=== PATIENT | female | born 1965 | race Caucasian/White ===

== ENCOUNTER 2017-02-12 12:09 | Observation (INO) | payer SELFPAY ==
[2017-02-12] VITALS (7 sets, daily range): BP systolic 143–186; BP diastolic 74–87; PULSE 61–86; RESP 15–20; TEMP 97.8–98.5; O2SAT 96–100
[~2017-02-12] VITALS: Ht 160 cm; Wt 90.0 kg
[~2017-02-12 12:09] MED LIST: BACT800T5 PO; LEVS0.123 PO; LISI-519 PO; METF1000 PO; PANT20 PO; VITA1000 PO; ZOFR4TAB PO
[2017-02-12] MEDS ORDERED: SODIUM CHLOR 0.9% 1000 ML INJ 1,000 ML IV ONE (12:30)
[2017-02-12] MEDS ORDERED: KETOROLAC TROMETHAMINE 30 MG/ML (IVP) VIAL IV PUSH ONE (12:30)
[2017-02-12] MEDS ORDERED: SODIUM CHLORIDE 0.9% FLUSH 10 ML FLUSH IVF PRN (12:30)
--- NOTE | 2017-02-12 12:39 | PD ---
HPI Chief Complaint: Chest Pain Time Seen by Provider: 12:13 Travel History International Travel<30 days: No Contact w/Intl Traveler<30days: No Traveled to known affect area: No History of Present Illness HPI Patient is a 51 year old female with history of diabetes, presents to ER with complaints of chest pain. Patient reports that around 10:30am today, she began to have chest pain. Reports that she was having lunch when she began having left sided sharp stabbing chest pain. Patient reports that pain does not radiate , she did feel diaphoretic and sob with her symptoms. Reports that when EMS arrived on scene, she was given 5 SL nitro sprays which seemed to help with her symptoms. Reports that she has no hx of CAD or [place] in the past. Reports that pain has improved after SL Nitro but the medicine did give her a pounding headache. 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, "VAGINAL CANCER" PER PT) Cardiovascular Problems: Yes (htn on meds) Diabetes: Yes Diminished Hearing: No Diverticulitis: Yes Gastrointestinal Disorders: Yes (DIVERTICULITIS/CROHNS) GERD: Yes Headaches: Yes Hypertension: Yes Kidney Stones: Yes (2014) Immunizations Current: Yes ?: Not Menopausal: Yes : 2 Para: 2 Past Surgical History Abdominal Surgery: Yes (HYSTERECTOMY) Hysterectomy: Yes Oral Surgery: Yes (TEETH EXTRACTIONS) Social History Alcohol Use: No Tobacco Use: No (QUIT MARCH 11, 2014) Substance Use: No Allergies-Medications (Allergen,Severity, Reaction): Coded Allergies: Ciprofloxacin (Verified Allergy, Severe, Hives, 08/18/16) Metronidazole (Verified Allergy, Severe, HIVES/FACIAL SWELLING, 08/18/16) Betadine (Verified Allergy, Unknown, 08/18/16) Reported Meds & Prescriptions Reported Meds & Active Scripts Active Levsin (Hyoscyamine Sulfate) 0.125 Mg Tab 0.125 Mg PO Q4H PRN Zofran (Ondansetron HCl) 4 Mg Tab 4 Mg PO Q6HR PRN Protonix (Pantoprazole Sodium) 20 Mg Tab 20 Mg PO BID Reported Vitamin D-1000 (Cholecalciferol) 1,000 Unit Tab 1,000 Units PO DAILY Metformin (Metformin HCl) 1,000 Mg Tab 1,000 Mg PO DAILY With a meal Lisinopril 5 Mg Tab 5 Mg PO DAILY Bactrim DS (Sulfamethoxazole-Trimethoprim) 800-160 Mg Tab 1 Tab PO BID Review of Systems General / Constitutional: No: Fever Eyes: No: Visual changes HENT: No: Headaches Cardiovascular: Positive: Chest Pain or Discomfort, Diaphoresis Respiratory: Positive: Shortness of Breath Gastrointestinal: No: Abdominal Pain Genitourinary: No: Dysuria Musculoskeletal: No: Pain Skin: No Rash Neurologic: No: Weakness Psychiatric: No: Depression Endocrine: No: Polydipsia Hematologic/Lymphatic: No: Easy Bruising Physical Exam Narrative GENERAL: Moderate distress SKIN: Focused skin assessment warm/dry. HEAD: Atraumatic. Normocephalic. EYES: Pupils equal and round. No scleral icterus. No injection or drainage. ENT: No nasal bleeding or discharge. Mucous membranes pink and moist. NECK: Trachea midline. No JVD. CARDIOVASCULAR: Regular rate and rhythm. No murmur appreciated. RESPIRATORY: No accessory muscle use. Clear to auscultation. Breath sounds equal bilaterally. GASTROINTESTINAL: Abdomen soft, non-tender, nondistended. Hepatic and splenic margins not palpable. MUSCULOSKELETAL: No obvious deformities. No clubbing. No cyanosis. No edema. NEUROLOGICAL: Awake and alert. No obvious cranial nerve deficits. Motor grossly within normal limits. Normal speech. PSYCHIATRIC: Patient anxious on exam Data Data Last Documented VS Vital Signs Date Time Temp Pulse Resp B/P Pulse Ox O2 Delivery O2 Flow Rate FiO2 02/12/17 12:26 82 15 97 Room Air 02/12/17 12:25 155/82 2 02/12/17 12:20 98.4 Orders B-Type Natriuretic Peptide (02/12/17 12:21) Ckmb (Isoenzyme) Profile (02/12/17 12:21) Complete Blood Count With Diff (02/12/17 12:21) Comprehensive Metabolic Panel (02/12/17 12:21) D-Dimer (02/12/17 12:21) Magnesium (Mg) (02/12/17 12:21) Prothrombin Time / Inr (Pt) (02/12/17 12:21) Act Partial Throm Time (Ptt) (02/12/17 12:21) Troponin I (02/12/17 12:21) Lipase (02/12/17 12:21) Chest, Single Ap (02/12/17 12:21) Ecg Monitoring (02/12/17 12:21) Iv Access Insert/Monitor (02/12/17 12:21) Oximetry (02/12/17 12:21) Sodium Chloride 0.9% Flush (Ns Flush) (02/12/17 12:30) Sodium Chlor 0.9% 1000 Ml Inj (Ns 1000 M (02/12/17 12:30) Ketorolac Inj (Toradol Inj) (02/12/17 12:30) Urinalysis - C+S If Indicated (02/12/17 12:32) CKMB (02/12/17 12:15) CKMB% (02/12/17 12:15) Labs Laboratory Tests Test 02/12/17 02/12/17 12:15 12:45 White Blood Count 8.3 TH/MM3 Red Blood Count 4.66 MIL/MM3 Hemoglobin 13.2 GM/DL Hematocrit 38.7 % Mean Corpuscular Volume 83.1 FL Mean Corpuscular Hemoglobin 28.4 PG Mean Corpuscular Hemoglobin 34.2 % Concent Red Cell Distribution Width 13.1 % Platelet Count 218 TH/MM3 Mean Platelet Volume 8.5 FL Neutrophils (%) (Auto) 60.6 % Lymphocytes (%) (Auto) 28.7 % Monocytes (%) (Auto) 7.4 % Eosinophils (%) (Auto) 2.6 % Basophils (%) (Auto) 0.7 % Neutrophils # (Auto) 5.0 TH/MM3 Lymphocytes # (Auto) 2.4 TH/MM3 Monocytes # (Auto) 0.6 TH/MM3 Eosinophils # (Auto) 0.2 TH/MM3 Basophils # (Auto) 0.1 TH/MM3 CBC Comment DIFF FINAL Differential Comment Prothrombin Time 10.8 SEC Prothromb Time International 1.0 RATIO Ratio Activated Partial 26.3 SEC Thromboplast Time D-Dimer Quantitative (PE/DVT) 0.34 MG/L FEU Sodium Level 139 MEQ/L Potassium Level 3.8 MEQ/L Chloride Level 103 MEQ/L Carbon Dioxide Level 25.6 MEQ/L Anion Gap 10 MEQ/L Blood Urea Nitrogen 11 MG/DL Creatinine 0.59 MG/DL Estimat Glomerular Filtration 107 ML/MIN Rate Random Glucose 160 MG/DL Calcium Level 9.4 MG/DL Magnesium Level 1.8 MG/DL Total Bilirubin 0.4 MG/DL Aspartate Amino Transf 154 U/L (AST/SGOT) Alanine Aminotransferase 118 U/L (ALT/SGPT) Alkaline Phosphatase 74 U/L Total Creatine Kinase 106 U/L Creatine Kinase MB 1.0 NG/ML Troponin I LESS THAN 0.02 NG/ML B-Type Natriuretic Peptide 31 PG/ML Total Protein 7.4 GM/DL Albumin 3.3 GM/DL Lipase 185 U/L Urine Color YELLOW Urine Turbidity HAZY Urine pH 5.0 Urine Specific O'Brien 1.023 Urine Protein TRACE mg/dL Urine Glucose (UA) NEG mg/dL Urine Ketones NEG mg/dL Urine Occult Blood NEG Urine Nitrite NEG Urine Bilirubin NEG Urine Urobilinogen LESS THAN 2.0 MG/DL Urine Leukocyte Esterase NEG Urine RBC 2 /hpf Urine WBC 2 /hpf Urine Squamous Epithelial 28 /hpf Cells Urine Bacteria FEW /hpf Urine Mucus FEW /lpf Microscopic Urinalysis Comment CULT NOT INDICATED MDM Medical Decision Making Medical Screen Exam Complete: Yes Emergency Medical Condition: Yes Medical Record Reviewed: Yes Interpretation(s) EKG at 1219: Normal sinus rhythm at 86 bpm, QT/QTc 380/423, not significant T- wave changes Vital Signs Date Time Temp Pulse Resp B/P Pulse Ox O2 Delivery O2 Flow Rate FiO2 02/12/17 12:26 82 15 97 Room Air 02/12/17 12:25 80 15 155/82 100 Nasal Cannula 2 02/12/17 12:20 98.4 85 15 157/87 98 Differential Diagnosis ACS, arrhythmia, PE, costochondritis, electrolyte abnormality Narrative Course 51-year-old female who presents to emergency with complaints of chest pain. Reports that chest began at 10:30 while eating lunch at work, patient reports that chest pain is located to the left side of her chest and is sharp and stabbing in nature. Reports that she felt diaphoretic and short of breath with her symptoms. Patient reports relief of symptoms after she was given sublingual nitroglycerin by EMS. Patient now reports headache. Patient was placed on a hard rock miner blasting upon arrival to ER. EKG with no acute st changes. She does have nonspecific t wave changes. Plan to obtain basic lab work including d.dimer. Xray of chest ordered. Plan to monitor patient on hard rock miner blasting Laboratory Tests Test 02/12/17 02/12/17 12:15 12:45 White Blood Count 8.3 TH/MM3 (4.0-11.0) Red Blood Count 4.66 MIL/MM3 (4.00-5.30) Hemoglobin 13.2 GM/DL (11.6-15.3) Hematocrit 38.7 % (35.0-46.0) Mean Corpuscular Volume 83.1 FL (80.0-100.0) Mean Corpuscular Hemoglobin 28.4 PG (27.0-34.0) Mean Corpuscular Hemoglobin 34.2 % Concent (32.0-36.0) Red Cell Distribution Width 13.1 % (11.6-17.2) Platelet Count 218 TH/MM3 (150-450) Mean Platelet Volume 8.5 FL (7.0-11.0) Neutrophils (%) (Auto) 60.6 % (16.0-70.0) Lymphocytes (%) (Auto) 28.7 % (9.0-44.0) Monocytes (%) (Auto) 7.4 % (0.0-8.0) Eosinophils (%) (Auto) 2.6 % (0.0-4.0) Basophils (%) (Auto) 0.7 % (0.0-2.0) Neutrophils # (Auto) 5.0 TH/MM3 (1.8-7.7) Lymphocytes # (Auto) 2.4 TH/MM3 (1.0-4.8) Monocytes # (Auto) 0.6 TH/MM3 (0-0.9) Eosinophils # (Auto) 0.2 TH/MM3 (0-0.4) Basophils # (Auto) 0.1 TH/MM3 (0-0.2) CBC Comment DIFF FINAL Differential Comment Prothrombin Time 10.8 SEC (9.8-11.6) Prothromb Time International 1.0 RATIO Ratio Activated Partial 26.3 SEC Thromboplast Time (24.3-30.1) D-Dimer Quantitative (PE/DVT) 0.34 MG/L FEU (0.00-0.50) Sodium Level 139 MEQ/L (136-145) Potassium Level 3.8 MEQ/L (3.5-5.1) Chloride Level 103 MEQ/L (98-107) Carbon Dioxide Level 25.6 MEQ/L (21.0-32.0) Anion Gap 10 MEQ/L (5-15) Blood Urea Nitrogen 11 MG/DL (7-18) Creatinine 0.59 MG/DL (0.50-1.00) Estimat Glomerular Filtration 107 ML/MIN Rate (>89) Random Glucose 160 MG/DL (74-106) Calcium Level 9.4 MG/DL (8.5-10.1) Magnesium Level 1.8 MG/DL (1.5-2.5) Total Bilirubin 0.4 MG/DL (0.2-1.0) Aspartate Amino Transf 154 U/L (15-37) (AST/SGOT) Alanine Aminotransferase 118 U/L (10-53) (ALT/SGPT) Alkaline Phosphatase 74 U/L (45-117) Total Creatine Kinase 106 U/L (26-192) Creatine Kinase MB 1.0 NG/ML (0.5-3.6) Troponin I LESS THAN 0.02 NG/ML (0.02-0.05) B-Type Natriuretic Peptide 31 PG/ML (0-100) Total Protein 7.4 GM/DL (6.4-8.2) Albumin 3.3 GM/DL (3.4-5.0) Lipase 185 U/L (73-393) Urine Color YELLOW (YELLW/STRAW) Urine Turbidity HAZY (CLEAR) Urine pH 5.0 (5.0-8.5) Urine Specific O'Brien 1.023 (1.002-1.035) Urine Protein TRACE mg/dL (NEG-TRACE) Urine Glucose (UA) NEG mg/dL (NEG) Urine Ketones NEG mg/dL (NEG) Urine Occult Blood NEG (NEG) Urine Nitrite NEG (NEG) Urine Bilirubin NEG (NEG) Urine Urobilinogen LESS THAN 2.0 MG/DL (LESS THAN 2.0) Urine Leukocyte Esterase NEG (NEG) Urine RBC 2 /hpf (0-3) Urine WBC 2 /hpf (0-5) Urine Squamous Epithelial 28 /hpf (0-5) Cells Urine Bacteria FEW /hpf (NONE) Urine Mucus FEW /lpf (OCC) Microscopic Urinalysis Comment CULT NOT INDICATED Last Impressions Chest X-Ray 02/12/17 1221 Signed Impressions: Service Date/Time: Sunday, February 12, 2017 12:22 - CONCLUSION: 1. No acute cardiopulmonary findings. Stable compared to previous. Jaison Sosa MD Patient currently chest pain free at this time. reviewed all labs in detail. will obs to CDU Diagnosis Primary Impression: Chest pain Qualified Code: R07.9 - Chest pain, unspecified type Admitting Information Admitting Physician Requests: Mary Golden DO Feb 12, 2017 12:39
--- NOTE | 2017-02-12 12:42 | RADRPT ---
EXAM DATE/TIME: 02/12/2017 12:22 [facility] COMPARISON: CHEST PA & LAT, October 22, 2015, 20:46. INDICATIONS : Mid-chest pain and short of breath. MEDICAL HISTORY : Hypertension. SURGICAL HISTORY : None. ENCOUNTER: Initial ACUITY: 1 day PAIN SCORE: 4/10 LOCATION: Bilateral chest FINDINGS: A single view of the chest demonstrates the lungs to be symmetrically aerated without evidence of mas s, infiltrate or effusion. The cardiomediastinal contours are unremarkable. Osseous structures are intact. CONCLUSION: 1. No acute cardiopulmonary findings. Stable compared to previous. Jaison Sosa MD on February 12, 2017 at 12:40 Board Certified Radiologist. This report was verified electronically.
[2017-02-12 13:15] LABS: BASOPHIL # 0.1 TH/MM3 (0-0.2); BASOPHIL % 0.7 % (0.0-2.0); EOSINOPHIL # 0.2 TH/MM3 (0-0.4); EOSINOPHIL % 2.6 % (0.0-4.0); HEMATOCRIT 38.7 % (35.0-46.0); HEMO FLAGS DIFF FINAL; LYMPH % 28.7 % (9.0-44.0); LYMPHOCYTE # 2.4 TH/MM3 (1.0-4.8); MEAN CELL VOLUME 83.1 FL (80.0-100.0); MEAN CORPUSCULAR HEMOGLOBIN 28.4 PG (27.0-34.0); MEAN CORPUSCULAR HGB CONC 34.2 % (32.0-36.0); MONO % 7.4 % (0.0-8.0); NEUT % 60.6 % (16.0-70.0); PLATELET COUNT 218 TH/MM3 (150-450); RED BLOOD COUNT 4.66 MIL/MM3 (4.00-5.30); RED CELL DISTRIBUTION WIDTH 13.1 % (11.6-17.2); WHITE BLOOD COUNT 8.3 TH/MM3 (4.0-11.0)
[2017-02-12 13:25] LABS: BACTERIA, URINE FEW /hpf; BLOOD, URINE NEG (NEG); COMMENT (UR) CULT NOT INDICATED; CULTURE IF INDICATED CULT NOT INDICATED; GLUCOSE,URINE NEG (NEG); KETONE, URINE NEG (NEG); MUCUS URINE FEW /lpf (OCC); NITRITE,URINE NEG (NEG); SQUAMOUS EPITHELIAL CELL URINE 28 /hpf (0-5); URINE COLOR YELLOW (YELLW/STRAW)
[2017-02-12 13:29] LABS: APTT (PATIENT) 26.3 SEC (24.3-30.1); PROTHROMBIN TIME - PATIENT 10.8 SEC (9.8-11.6)
[2017-02-12 13:34] LABS: ALT (GPT) 118 U/L (10-53); ANION GAP 10 MEQ/L (5-15); AST (GOT) 154 U/L (15-37); BICARBONATE 25.6 MEQ/L (21.0-32.0); BLOOD UREA NITROGEN 11 MG/DL (7-18); CHLORIDE 103 MEQ/L (98-107); GLOMERULAR FILTRATION RATE 107 ML/MIN (>89); MAGNESIUM 1.8 MG/DL (1.5-2.5); POTASSIUM 3.8 MEQ/L (3.5-5.1); SODIUM (NA) 139 MEQ/L (136-145)
[2017-02-12 13:38] LABS: ALKALINE PHOSPHATASE 74 U/L (45-117); CREATINE KINASE 106 U/L (26-192); TOTAL BILIRUBIN ADULT 0.4 MG/DL (0.2-1.0)
[2017-02-12] MEDS ORDERED: SODIUM CHLORIDE 0.9% FLUSH 5 ML FLUSH IVF PRN (14:30)
[2017-02-12] MEDS ORDERED: ACETAMINOPHEN/HYDROcodone 325 MG/7.5 MG TAB PO PRN (14:30)
[2017-02-12] MEDS ORDERED: ACETAMINOPHEN 500 MG CPLT PO PRN (14:30)
[2017-02-12] MEDS ORDERED: ONDANSETRON HCL 4 MG/2 ML VIAL IV PRN (14:30)
[2017-02-12] MEDS ORDERED: GLUCAGON 1 MG/ML VIAL IM/SQ PRN (14:45)
[2017-02-12] MEDS ORDERED: DEXTROSE 50% IN WATER 50 ML VIAL(D50) IV PRN (14:45)
--- NOTE | 2017-02-12 14:59 | HHI.HP ---
HPI Primary Care Physician No Primary Care Physician Chief Complaint Chest pain History of Present Illness This is a 51-year-old female that presents to ED from work via [employer] with a complaint of chest discomfort. She describes a stabbing chest pain that feels like someone is twisting a knife in her left upper chest. It began around 10: 30 this morning. It would last for 5 minutes but recurred 6 or 7 more times. No associated shortness of breath or diaphoresis. She now can recall that about an hour prior to developing the discomfort she had an episode of emesis. She states the emesis is not that uncommon. States that she has 1-2 episodes of emesis a day and has done so for quite some time and was attributed to either Crohn's disease or diverticulitis. It is nonbloody. Denies black or tarry stools. She also states that she is a diabetic and hypertension however she has not been take her medications as she doesn't have a local doctor. Denies recent illness. Denies fevers or chills. Review of Systems General: Patient denies fevers, chills recent, and recent travel HEENT: Patient denies headache, sore throat, difficulty swallowing. Cardiovascular: Has the chest discomfort as mentioned above. Denies sensation of heart beating rapidly or irregularly. No syncope. Denies diaphoresis. Respiratory: Denies shortness of breath or inspirational chest discomfort. Denies coughing wheezing or hemoptysis. GI: Patient complains of 1-2 episodes of emesis a day. She had an episode of emesis about an hour and a half prior to the chest pain developing. She has chronic abdominal discomfort. Denies bloody stools. Denies diarrhea or constipation. Musculoskeletal: Patient denies joint pain or edema. Denies calf pain or edema. Neurovascular: Patient denies numbness, tingling, weakness in extremities. Denies headache. Endocrine: Denies polyuria and polydipsia. Hematologic: Denies easy bruising. Skin: Denies rash or itching. Past Family Social History Allergies: Coded Allergies: Ciprofloxacin (Verified Allergy, Severe, Hives, 08/18/16) Metronidazole (Verified Allergy, Severe, HIVES/FACIAL SWELLING, 08/18/16) Betadine (Verified Allergy, Unknown, 08/18/16) Past Medical History Hypertension, diabetes, GERD, diverticulitis, Crohn's disease. Denies hyperlipidemia and known CAD. Past Surgical History Hysterectomy. Reported Medications Reported Meds & Active Scripts Active Protonix (Pantoprazole Sodium) 20 Mg Tab 20 Mg PO BID Reported Metformin (Metformin HCl) 1,000 Mg Tab 1,000 Mg PO DAILY With a meal Lisinopril 5 Mg Tab 5 Mg PO DAILY Active Ordered Medications Current Medications Medications (Trade) Dose Ordered Sig/Maylin Route Start Time Stop Time Status Last Admin (NS Flush) 2 ml UNSCH PRN IVF 02/12/17 14:30 (NS Flush) 2 ml BID IVF 02/12/17 21:00 (Tylenol) 500 mg Q4H PRN PO 02/12/17 14:30 UNV ([employer] 7.5-325 Mg) 1 tab Q4H PRN PO 02/12/17 14:30 UNV (Zofran Inj) 4 mg Q6H PRN IV 02/12/17 14:30 UNV (Protonix) 40 mg DAILY PO 02/13/17 09:00 UNV (D50w (Vial) Inj) 25 ml UNSCH PRN IV 02/12/17 14:45 UNV (Glucagon Inj) 1 mg UNSCH PRN IM/SQ 02/12/17 14:45 UNV (Prinivil) 5 mg DAILY PO 02/12/17 15:00 UNV Family History Denies family history of CAD. Social History Patient quit smoking cigarettes 3 years ago but prior to that she smoked 1-1/2 packs of cigarettes daily for 20 years. She denies alcohol or illicit drugs. 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 Her fianc is at the bedside. Physical Exam Vital Signs Vital Signs Date Time Temp Pulse Resp B/P Pulse Ox O2 Delivery O2 Flow Rate FiO2 02/12/17 14:51 86 16 151/84 96 02/12/17 12:26 82 15 97 Room Air 02/12/17 12:25 80 15 155/82 100 Nasal Cannula 2 02/12/17 12:20 98.4 85 15 157/87 98 Physical Exam GENERAL: This is a well-nourished, well-developed patient, in no apparent distress. Patient speaks in clear complete sentences. Patient is pleasant. Her fianc is at the bedside. HEENT: Head is atraumatic and normocephalic. Neck is supple without lymphadenopathy and trachea is midline. No JVD or carotid bruits. CARDIOVASCULAR: Regular rate and rhythm without murmurs, gallops, or rubs. RESPIRATORY: Clear to auscultation. Breath sounds equal bilaterally. No wheezes , rales, or rhonchi. Chest wall is nontender. No use of accessory muscles. GASTROINTESTINAL: There is right upper quadrant abdominal tenderness on palpating the area. He mild positive Alford's sign. Abdomen is nondistended. Abdomen soft. No obvious pulsatile mass or bruit. No CVA tenderness. Strong femoral pulses bilaterally. Normal bowel sounds in all quadrants. MUSCULOSKELETAL: Patient is moving upper and lower extremities freely. No calf tenderness or edema, no Homans sign. Strong pulses in upper and lower extremities. NEUROLOGICAL: Patient is alert and oriented. Cranial nerves 2-12 are grossly intact. No focal deficits and speech is clear. SKIN: No rash and turgor is normal. Laboratory Laboratory Tests Test 02/12/17 02/12/17 12:15 12:45 White Blood Count 8.3 Red Blood Count 4.66 Hemoglobin 13.2 Hematocrit 38.7 Mean Corpuscular Volume 83.1 Mean Corpuscular Hemoglobin 28.4 Mean Corpuscular Hemoglobin 34.2 Concent Red Cell Distribution Width 13.1 Platelet Count 218 Mean Platelet Volume 8.5 Neutrophils (%) (Auto) 60.6 Lymphocytes (%) (Auto) 28.7 Monocytes (%) (Auto) 7.4 Eosinophils (%) (Auto) 2.6 Basophils (%) (Auto) 0.7 Neutrophils # (Auto) 5.0 Lymphocytes # (Auto) 2.4 Monocytes # (Auto) 0.6 Eosinophils # (Auto) 0.2 Basophils # (Auto) 0.1 CBC Comment DIFF FINAL Differential Comment Prothrombin Time 10.8 Prothromb Time International 1.0 Ratio Activated Partial 26.3 Thromboplast Time D-Dimer Quantitative (PE/DVT) 0.34 Sodium Level 139 Potassium Level 3.8 Chloride Level 103 Carbon Dioxide Level 25.6 Anion Gap 10 Blood Urea Nitrogen 11 Creatinine 0.59 Estimat Glomerular Filtration 107 Rate Random Glucose 160 Calcium Level 9.4 Magnesium Level 1.8 Total Bilirubin 0.4 Aspartate Amino Transf 154 (AST/SGOT) Alanine Aminotransferase 118 (ALT/SGPT) Alkaline Phosphatase 74 Total Creatine Kinase 106 Creatine Kinase MB 1.0 Troponin I LESS THAN 0.02 B-Type Natriuretic Peptide 31 Total Protein 7.4 Albumin 3.3 Lipase 185 Urine Color YELLOW Urine Turbidity HAZY Urine pH 5.0 Urine Specific [place] 1.023 Urine Protein TRACE Urine Glucose (UA) NEG Urine Ketones NEG Urine Occult Blood NEG Urine Nitrite NEG Urine Bilirubin NEG Urine Urobilinogen LESS THAN 2.0 Urine Leukocyte Esterase NEG Urine RBC 2 Urine WBC 2 Urine Squamous Epithelial 28 Cells Urine Bacteria FEW Urine Mucus FEW Microscopic Urinalysis Comment CULT NOT INDICATED Result Diagram: 02/12/17 1215 02/12/17 1215 Imaging Last 48 hours Impressions Chest X-Ray 02/12/17 1221 Signed Impressions: Service Date/Time: Sunday, February 12, 2017 12:22 - CONCLUSION: 1. No acute cardiopulmonary findings. Stable compared to previous. Jaison Sosa MD Course EKGs: Initial EKG has sinus rhythm with nonspecific inferior and lateral ST changes. Assessment and Plan Assessment and Plan * Chest pain: Patient will continue to have serial cardiac enzymes and EKGs for ruling out purposes. She will be evaluated by Dr. Lopez and at that time we'll determine further cardiac testing. We will get a gallbladder ultrasound she has some right upper quadrant tenderness and has elevated ALT and AST. * Hypertension: Patient has been noncompliant. Will restart lisinopril. * Diabetes: We'll give a prescription for her metformin. She needs to follow diabetic diet. She will have sliding scale insulin coverage while in the chest pain center. * GERD: She will have Protonix while in the chest pain center. Patient is stable at this time. She is agreeable to this plan. [place] Mary Feb 12, 2017 14:59
--- NOTE | 2017-02-12 16:13 | RADRPT ---
EXAM DATE/TIME: 02/12/2017 15:26 [facility] COMPARISON: No previous studies available for comparison. INDICATIONS : Right upper quadrant pain. MEDICAL HISTORY : Hypertension. Diverticulitis. Crohn's disease. GERD. Renal calculi. Arthritis. Diabetes. Uterine canc er. SURGICAL HISTORY : Hysterectomy. ENCOUNTER: Subsequent ACUITY: 1 day PAIN SCORE: 7/10 LOCATION: Right upper quadrant MEASUREMENTS: LIVER: 23.0 cm length COMMON DUCT: 5 mm RIGHT KIDNEY: 11.9 x 5.1 x 4.8 cm FINDINGS: LIVER: Homogeneous echotexture without focal lesion or ductal dilatation. Hepatopedal flow was in the britt l vein. COMMON DUCT: No intraluminal mass or stone visualized. GALLBLADDER: Contains no stones, demonstrates no wall thickening or pericholecystic fluid. PANCREAS: The visualized portions are within normal limits. RIGHT KIDNEY: No evidence of hydronephrosis, stone, or mass. CONCLUSION: 1. Hepatomegaly without focal lesion. 2. No gallstones seen. Quinten Astudillo MD on February 12, 2017 at 16:10 Board Certified Radiologist. This report was verified electronically.
[2017-02-12] MEDS: LISINOPRIL 5 MG TAB PO SCH (16:36)
[2017-02-12] MEDS ORDERED: cloNIDine HCL 0.1 MG TAB PO PRN (17:00)
[2017-02-12] MEDS: INSULIN ASPART SUPPLEMENTAL SCALE SQ SCH ×2 (17:03→20:29)
[2017-02-12 17:19] LABS: CREATINE KINASE 97 U/L (26-192)
[2017-02-12] MEDS: SODIUM CHLORIDE 0.9% FLUSH 5 ML FLUSH IVF SCH (20:28)
[2017-02-12 20:58] LABS: CREATINE KINASE 100 U/L (26-192)
[2017-02-13] VITALS (7 sets, daily range): BP systolic 136–184; BP diastolic 77–90; PULSE 60–74; RESP 18–20; TEMP 98–98.1; O2SAT 95–97
[2017-02-13] MEDS: INSULIN ASPART SUPPLEMENTAL SCALE SQ SCH ×2 (05:53→13:09)
[2017-02-13] MEDS: LISINOPRIL 5 MG TAB PO SCH (08:10)
[2017-02-13] MEDS: SODIUM CHLORIDE 0.9% FLUSH 5 ML FLUSH IVF SCH (08:10)
[2017-02-13] MEDS: MORPHINE SULFATE 4 MG/ML INJ IV PUSH PRN ×2 (08:12→12:18)
[2017-02-13] MEDS ORDERED: PANTOPRAZOLE SOD 40 MG DELAYED RELEASE TAB PO SCH (09:00)
[2017-02-13] MEDS ORDERED: REGADENOSON INJ 0.4 MG/5 ML SYR ONE (10:22)
--- NOTE | 2017-02-13 12:13 | RADRPT ---
EXAM DATE/TIME: 02/13/2017 09:43 [facility] COMPARISON: No previous studies available for comparison. INDICATIONS : Chest pain with nausea. Angina. DOSE: 25.6 mCi Tc99m Myoview at stress. 8.8 mCi Tc99m Myoview at rest. 0.4 mg Lexiscan STRESS SYMPTOMS: None. EJECTION FRACTION: 63% MEDICAL HISTORY : Diabetes mellitus type 2. Hypertension. Carcinoma, not otherwise specified. SURGICAL HISTORY : Hysterectomy. ENCOUNTER: Initial ACUITY: 1 day PAIN SCALE: 0/10 LOCATION: chest TECHNIQUE: The patient underwent pharmacologic stress with infusion of prescribed dose. Continuous ECG tracing was monitored during stress. Gated SPECT imaging was performed after stress and conventional SPECT i maging was performed at rest. The examination was performed on a SPECT/CT scanner, both attenuation and non-corrected datasets were reviewed. FINDINGS: DISTRIBUTION: The maximum perfused segment at stress is in the septal wall. PERFUSION STUDY: The pattern of perfusion at stress is within normal limits. GATED STUDY: There is intact wall motion and thickening without hypokinetic or dyskinetic segments. CONCLUSION: Unremarkable myocardial perfusion examination RISK CATEGORY: Low Armando Donovan MD on February 13, 2017 at 12:11 Board Certified Radiologist. This report was verified electronically.
[2017-02-13] MEDS ORDERED: LISI10TA3 PO (12:26)
--- NOTE | 2017-02-13 12:26 | HHI.DCPOC ---
Discharge Care Plan Diagnosis: (1) Chest pain (2) Hypertension (3) DM (diabetes mellitus) Goals to Promote Your Health * To prevent worsening of your condition and complications * To maintain your health at the optimal level Directions to Meet Your Goals Take your medications as prescribed Follow your dietary instruction Follow activity as directed Keep your appointments as scheduled Take your immunizations and boosters as scheduled If your symptoms worsen call your PCP, if no PCP go to Urgent Care Center or Emergency Room Smoking is Dangerous to Your Health. Avoid second hand smoke Call the 24-hour hour crisis hotline for domestic abuse at [place] Feb 13, 2017 12:26
--- NOTE | 2017-02-13 12:33 | PD.CARD.PN ---
Subjective Subjective Remarks No complaints. Objective Vital Signs / I&O Vital Signs Date Time Temp Pulse Resp B/P Pulse Ox O2 Delivery O2 Flow Rate FiO2 02/13/17 07:33 97 21 02/13/17 07:20 98.1 74 18 150/83 95 02/13/17 04:19 60 02/13/17 04:12 98.0 62 20 136/77 97 02/12/17 23:47 98.0 66 20 148/76 96 02/12/17 21:43 18 02/12/17 20:24 98 02/12/17 20:02 98.5 64 20 186/85 97 02/12/17 15:46 97.8 61 20 143/74 96 02/12/17 14:51 86 16 151/84 96 Physical Exam Lungs: CTA Heart: RRR Abd: Nontender, bowel sounds normal. Laboratory Laboratory Tests Test 02/12/17 02/12/17 02/12/17 12:45 16:15 19:34 Urine Color YELLOW Urine Turbidity HAZY Urine pH 5.0 Urine Specific [place] 1.023 Urine Protein TRACE mg/dL Urine Glucose (UA) NEG mg/dL Urine Ketones NEG mg/dL Urine Occult Blood NEG Urine Nitrite NEG Urine Bilirubin NEG Urine Urobilinogen LESS THAN 2.0 MG/DL Urine Leukocyte Esterase NEG Urine RBC 2 /hpf Urine WBC 2 /hpf Urine Squamous Epithelial 28 /hpf Cells Urine Bacteria FEW /hpf Urine Mucus FEW /lpf Microscopic Urinalysis Comment CULT NOT INDICATED Total Creatine Kinase 97 U/L 100 U/L Troponin I LESS THAN 0.02 LESS THAN 0.02 NG/ML NG/ML Imaging Lexiscan is non-ischemic. Assessment and Plan Assessment and Plan * Chest pain: Patient will continue to have serial cardiac enzymes and EKGs for ruling out purposes. She will be evaluated by Dr. Lopez and at that time we'll determine further cardiac testing. We will get a gallbladder ultrasound she has some right upper quadrant tenderness and has elevated ALT and AST. * Hypertension: Patient has been noncompliant. Will restart lisinopril. * Diabetes: We'll give a prescription for her metformin. She needs to follow diabetic diet. She will have sliding scale insulin coverage while in the chest pain center. * GERD: She will have Protonix while in the chest pain center. Patient is stable at this time. She is agreeable to this plan. Delano Mary Feb 13, 2017 12:33
--- NOTE | 2017-02-13 17:23 | TR ---
Date Performed: 02/13/2017 Time Performed: 10:32:33 DOCTOR: Germania Lopez DRUG LIST: CLINICAL HISTORY: REASON FOR TEST: CP REASON FOR ENDING: OBSERVATION: CONCLUSION: Lexiscan stress test was performed under standard four minute protocol. Radionuclid e was injected one minute prior to ending the test. No electrocardiographic abormalities were present to suggest ischemia. Nuclear imaging and interpretation are pending. COMMENTS:
--- NOTE | 2017-02-13 17:24 | EKG ---
Date Performed: 02/12/2017 Time Performed: 12:19:51 PTAGE: 51 years EKG: Sinus rhythm NONSPECIFIC T-WAVE ABNORMALITY BORDERLINE ECG NO PREVIOUS TRACING DOCTOR: Germania Lopez Interpretating Date/Time 02/13/2017 17:23:55
--- NOTE | 2017-02-13 17:24 | EKG ---
Date Performed: 02/12/2017 Time Performed: 20:11:46 PTAGE: 51 years EKG: Sinus rhythm NORMAL ECG Since PREVIOUS TRACING , no significant change noted PREVIOUS TRACIN02/12/2017 16.19 DOCTOR: Germania Lopez Interpretating Date/Time 02/13/2017 17:23:48
--- NOTE | 2017-02-13 17:25 | EKG ---
Date Performed: 02/12/2017 Time Performed: 16:19:32 PTAGE: 51 years EKG: Sinus rhythm NORMAL ECG PREVIOUS TRACING : 02/12/2017 12.19 Since previous tracing, no significant change noted DOCTOR: Germania Lopez Interpretating Date/Time 02/13/2017 17:24:47
[2017-02-21] MEDS ORDERED: PANT20 PO (16:29)
[2017-02-21] MEDS ORDERED: METF1000 PO (16:31)
[2017-02-21] MEDS ORDERED: LISI10TA3 PO (16:31)
== END 2017-02-13 14:17 | disposition home or self-care (01) ==
LOC: NEPE 12:09 → NEDA 14:04 → NEPGCP 15:15
PROVIDERS: ADMIT Internal Medicine Interventional Cardiology; ATTEND Internal Medicine Interventional Cardiology
DX: R07.89 Other chest pain (principal); R06.02 Shortness of breath; I10 Essential (primary) hypertension; E11.9 Type 2 diabetes mellitus without complications; K21.9 Gastro-esophageal reflux disease without esophagitis; K50.90 Crohn's disease, unspecified, without complications; Z85.42 Personal history of malignant neoplasm of other parts of uterus; Z87.891 Personal history of nicotine dependence; Z88.1 Allergy status to other antibiotic agents; Z88.8 Allergy status to other drugs, medicaments and biological substances; Z79.84 Long term (current) use of oral hypoglycemic drugs; Z91.19 Patient's noncompliance with other medical treatment and regimen
CPT/HCPCS: 71010; 76705; 78452; 80053; 81001; 82550; 82552; 82948; 83690; 83735; 83880; 84484; 85025; 85379; 85610; 85730; 93005; 93017; 96361; 96372; 96374; 96375; 99285; A9502; G0378; J1815; J1885; J2270; J2785; J7030

== ENCOUNTER 2017-03-03 03:37 | Emergency (ER) | payer SELFPAY ==
[~2017-03-03] VITALS: Ht 160 cm; Wt 90.0 kg
[~2017-03-03 03:37] MED LIST changes: -BACT800T5 PO; -LEVS0.123 PO; -LISI-519 PO; +LISI10TA3 PO; -VITA1000 PO; -ZOFR4TAB PO
[2017-03-03 03:46] VITALS: BP 168/81; PULSE 97; RESP 18; O2SAT 96
[2017-03-03] MEDS ORDERED: SODIUM CHLOR 0.9% 1000 ML INJ 1,000 ML IV SCH (04:01)
[2017-03-03] MEDS ORDERED: ONDANSETRON HCL 4 MG/2 ML VIAL IVP ONE (04:15)
[2017-03-03] MEDS ORDERED: KETOROLAC TROMETHAMINE 30 MG/ML (IVP) VIAL IVP ONE (04:15)
[2017-03-03] MEDS ORDERED: MORPHINE SULFATE 4 MG/ML INJ IV PUSH ONE (04:15)
[2017-03-03] MEDS ORDERED: SODIUM CHLORIDE 0.9% FLUSH 10 ML FLUSH IV FLUSH PRN (04:15)
--- NOTE | 2017-03-03 04:26 | PD ---
HPI Chief Complaint: Abdominal Pain Time Seen by Provider: 03:44 Travel History International Travel<30 days: No Contact w/Intl Traveler<30days: No Traveled to known affect area: No History of Present Illness HPI The patient is a 51-year-old female who presents to the emergency department for flank pain. The patient states she was awakened at midnight with right sided flank pain. The patient's pain radiates from the right mid back down to the right groin, she is unable to find a comfortable position. There are no alleviating or exacerbating factors. The pain is sharp, constant, but not associated with any symptoms. She denies any dysuria, frequency, urgency, or hematuria. She denies any previous history of kidney stones. She does have a history of cervical cancer with subsequent surgery to remove the cervix. She does complain of nausea and vomiting secondary to the abdominal pain. She denies any change in bowel habits or constipation. She denies any company chest pain, shortness of breath, or cough. PFSH Past Medical History Arthritis: Yes (spine) Heart Rhythm Problems: No Cancer: Yes (UTERINE CA, "VAGINAL CANCER" PER PT) Cardiac Catheterization: No Cardiovascular Problems: No Congestive Heart Failure: No Diabetes: Yes Patient Takes Glucophage: Yes Diminished Hearing: No Diverticulitis: Yes Gastrointestinal Disorders: Yes (DIVERTICULITIS/CROHNS) GERD: Yes Headaches: Yes Hypertension: Yes Kidney Stones: Yes (2015) Immunizations Current: Yes ?: Not Menopausal: Yes : 2 Para: 2 Past Surgical History Abdominal Surgery: Yes (HYSTERECTOMY) Coronary Artery Bypass Graft: No Genitourinary Surgery: Yes (hysterectomy ) Hysterectomy: Yes Oral Surgery: Yes (TEETH EXTRACTIONS) Family History Family Myocardial Infarction: Yes (UNCLE) Social History Alcohol Use: No Tobacco Use: No Substance Use: No Allergies-Medications (Allergen,Severity, Reaction): Coded Allergies: Ciprofloxacin (Verified Allergy, Severe, Hives, 03/03/17) Metronidazole (Verified Allergy, Severe, HIVES/FACIAL SWELLING, 03/03/17) Betadine (Verified Allergy, Unknown, 03/03/17) Reported Meds & Prescriptions Reported Meds & Active Scripts Active Lisinopril 10 Mg Tab 10 Mg PO DAILY Metformin (Metformin HCl) 1,000 Mg Tab 1,000 Mg PO DAILY With a meal Protonix (Pantoprazole Sodium) 20 Mg Tab 20 Mg PO BID Review of Systems Except as stated in HPI: all other systems reviewed are Neg General / Constitutional: No: Fever HENT: No: Lightheadedness Cardiovascular: No: Chest Pain or Discomfort Respiratory: No: Shortness of Breath Gastrointestinal: Positive: Nausea, Vomiting, Abdominal Pain Genitourinary: Positive: Flank Pain, No: Urgency, Frequency, Dysuria, Hematuria, Discharge Skin: No Rash Physical Exam Narrative GENERAL: Awake, alert, nontoxic-appearing 51-year-old female who appears her stated age and appears in moderate discomfort. SKIN: Focused skin assessment warm/dry. HEAD: Atraumatic. Normocephalic. EYES: Pupils equal and round. No scleral icterus. No injection or drainage. ENT: No nasal bleeding or discharge. Mucous membranes pink and moist. NECK: Trachea midline. No JVD. CARDIOVASCULAR: Regular rate and rhythm. No murmur appreciated. RESPIRATORY: No accessory muscle use. Clear to auscultation. Breath sounds equal bilaterally. GASTROINTESTINAL: Abdomen soft, abdomen is diffusely tender, but worse in the right flank. Back: Mild right CVA tenderness. MUSCULOSKELETAL: No obvious deformities. No clubbing. No cyanosis. No edema. NEUROLOGICAL: Awake and alert. No obvious cranial nerve deficits. Motor grossly within normal limits. Normal speech. PSYCHIATRIC: Appropriate mood and affect; insight and judgment normal. Data Data Last Documented VS Vital Signs Date Time Temp Pulse Resp B/P Pulse Ox O2 Delivery O2 Flow Rate FiO2 03/03/17 06:07 16 03/03/17 03:46 97 168/81 96 Orders Complete Blood Count With Diff (03/03/17 04:01) Comprehensive Metabolic Panel (03/03/17 04:01) Lipase (03/03/17 04:01) Lactic Acid (03/03/17 04:01) Urinalysis - C+S If Indicated (03/03/17 04:01) Ct Abd/Pel W/O Iv Contrast (03/03/17 04:01) Iv Access Insert/Monitor (03/03/17 04:01) Ecg Monitoring (03/03/17 04:01) Oximetry (03/03/17 04:01) Morphine Inj (Morphine Inj) (03/03/17 04:15) Ondansetron Inj (Zofran Inj) (03/03/17 04:15) Sodium Chlor 0.9% 1000 Ml Inj (Ns 1000 M (03/03/17 04:01) Sodium Chloride 0.9% Flush (Ns Flush) (03/03/17 04:15) Ketorolac Inj (Toradol Inj) (03/03/17 04:15) Hydromorphone Pf Inj (Dilaudid Pf Inj) (03/03/17 05:00) Sodium Chlor 0.9% 1000 Ml Inj (Ns 1000 M (03/03/17 05:00) Labs Laboratory Tests Test 03/03/17 03/03/17 03/03/17 04:00 04:17 06:00 White Blood Count 12.1 TH/MM3 Red Blood Count 4.89 MIL/MM3 Hemoglobin 13.7 GM/DL Hematocrit 41.0 % Mean Corpuscular Volume 83.9 FL Mean Corpuscular Hemoglobin 28.1 PG Mean Corpuscular Hemoglobin 33.5 % Concent Red Cell Distribution Width 13.2 % Platelet Count 265 TH/MM3 Mean Platelet Volume 9.2 FL Neutrophils (%) (Auto) 64.2 % Lymphocytes (%) (Auto) 26.1 % Monocytes (%) (Auto) 6.2 % Eosinophils (%) (Auto) 2.5 % Basophils (%) (Auto) 1.0 % Neutrophils # (Auto) 7.8 TH/MM3 Lymphocytes # (Auto) 3.1 TH/MM3 Monocytes # (Auto) 0.7 TH/MM3 Eosinophils # (Auto) 0.3 TH/MM3 Basophils # (Auto) 0.1 TH/MM3 CBC Comment AUTO DIFF Differential Comment AUTO DIFF CONFIRMED Platelet Estimate NORMAL Platelet Morphology Comment NORMAL Red Cell Morphology Comment NORMAL Sodium Level 141 MEQ/L Potassium Level 4.8 MEQ/L Chloride Level 105 MEQ/L Carbon Dioxide Level 25.2 MEQ/L Anion Gap 11 MEQ/L Blood Urea Nitrogen 19 MG/DL Creatinine 1.03 MG/DL Estimat Glomerular Filtration 56 ML/MIN Rate Random Glucose 255 MG/DL Calcium Level 9.0 MG/DL Total Bilirubin 0.5 MG/DL Aspartate Amino Transf 117 U/L (AST/SGOT) Alanine Aminotransferase 96 U/L (ALT/SGPT) Alkaline Phosphatase 78 U/L Total Protein 7.8 GM/DL Albumin 3.4 GM/DL Lipase 252 U/L Lactic Acid Level 3.3 mmol/L Urine Color LIGHT-YELLOW Urine Turbidity CLEAR Urine pH 5.5 Urine Specific [place] 1.015 Urine Protein NEG mg/dL Urine Glucose (UA) 300 mg/dL Urine Ketones TRACE mg/dL Urine Occult Blood NEG Urine Nitrite NEG Urine Bilirubin NEG Urine Urobilinogen LESS THAN 2.0 MG/DL Urine Leukocyte Esterase NEG Urine RBC LESS THAN 1 /hpf Urine WBC LESS THAN 1 /hpf Urine Squamous Epithelial <1 /hpf Cells Urine Mucus FEW /lpf Microscopic Urinalysis Comment CULT NOT INDICATED MDM Medical Decision Making Medical Screen Exam Complete: Yes Emergency Medical Condition: Yes Medical Record Reviewed: Yes Interpretation(s) Laboratory Tests Test 03/03/17 03/03/17 03/03/17 04:00 04:17 06:00 White Blood Count 12.1 TH/MM3 Red Blood Count 4.89 MIL/MM3 Hemoglobin 13.7 GM/DL Hematocrit 41.0 % Mean Corpuscular Volume 83.9 FL Mean Corpuscular Hemoglobin 28.1 PG Mean Corpuscular Hemoglobin 33.5 % Concent Red Cell Distribution Width 13.2 % Platelet Count 265 TH/MM3 Mean Platelet Volume 9.2 FL Neutrophils (%) (Auto) 64.2 % Lymphocytes (%) (Auto) 26.1 % Monocytes (%) (Auto) 6.2 % Eosinophils (%) (Auto) 2.5 % Basophils (%) (Auto) 1.0 % Neutrophils # (Auto) 7.8 TH/MM3 Lymphocytes # (Auto) 3.1 TH/MM3 Monocytes # (Auto) 0.7 TH/MM3 Eosinophils # (Auto) 0.3 TH/MM3 Basophils # (Auto) 0.1 TH/MM3 CBC Comment AUTO DIFF Differential Comment AUTO DIFF CONFIRMED Platelet Estimate NORMAL Platelet Morphology Comment NORMAL Red Cell Morphology Comment NORMAL Sodium Level 141 MEQ/L Potassium Level 4.8 MEQ/L Chloride Level 105 MEQ/L Carbon Dioxide Level 25.2 MEQ/L Anion Gap 11 MEQ/L Blood Urea Nitrogen 19 MG/DL Creatinine 1.03 MG/DL Estimat Glomerular Filtration 56 ML/MIN Rate Random Glucose 255 MG/DL Calcium Level 9.0 MG/DL Total Bilirubin 0.5 MG/DL Aspartate Amino Transf 117 U/L (AST/SGOT) Alanine Aminotransferase 96 U/L (ALT/SGPT) Alkaline Phosphatase 78 U/L Total Protein 7.8 GM/DL Albumin 3.4 GM/DL Lipase 252 U/L Lactic Acid Level 3.3 mmol/L Urine Color LIGHT-YELLOW Urine Turbidity CLEAR Urine pH 5.5 Urine Specific [place] 1.015 Urine Protein NEG mg/dL Urine Glucose (UA) 300 mg/dL Urine Ketones TRACE mg/dL Urine Occult Blood NEG Urine Nitrite NEG Urine Bilirubin NEG Urine Urobilinogen LESS THAN 2.0 MG/DL Urine Leukocyte Esterase NEG Urine RBC LESS THAN 1 /hpf Urine WBC LESS THAN 1 /hpf Urine Squamous Epithelial <1 /hpf Cells Urine Mucus FEW /lpf Microscopic Urinalysis Comment CULT NOT INDICATED Differential Diagnosis Differential diagnoses includes nephrolithiasis, hydronephrosis, pyelonephritis , perforated viscus, diverticulitis, pancreatitis, atypical appendicitis. Narrative Course IV was established, labs are drawn and sent, and the patient was placed on cardiac telemetry monitoring and continuous pulse oximetry monitoring. 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 UA was sent to lab. CT of the abdomen and pelvis without IV contrast was ordered. CT revealed 2 mm calculus in the posterior aspect of the bladder on the right with mild right hydronephrosis and right hydroureter. Lactic acid was mildly elevated, therefore, patient was administered another dose of IV fluids. Patient was reevaluated at 5 AM, continues to have right flank pain, therefore, was administered Dilaudid. UA was negative. The patient was reevaluated at, her pain had improved somewhat. She was redosed once again with 0.5 mg of Dilaudid. She will be discharged home on pain medications and is advised to follow-up with her primary physician. Diagnosis Primary Impression: Nephrolithiasis Patient Instructions: General Instructions Additional Instructions: Medications as directed. Follow-up with her primary physician. Please provide a patient a copy of her CT results and lab results at discharge. Med/Other Pt SpecificInfo: Prescription(s) given Scripts Hydrocodone-Acetaminophen ([place])5-325 mg Tab1 Tab PO Q6H PRN (PAIN) #12 TAB Ref 0 Prov:Sridhar Le MD 03/03/17 Ibuprofen 400 Mg Ncl912 Mg PO Q6H PRN (PAIN SCALE 1 TO 10) #20 TAB Ref 0 Prov:Sridhar Le MD 03/03/17 Disposition: DISCHARGE HOME Condition: Stable Sridhar Le MD Mar 03, 2017 04:26
[2017-03-03 04:37] LABS: AUTOMATED NEUTROPHIL # 7.8 TH/MM3 (1.8-7.7); BASOPHIL # 0.1 TH/MM3 (0-0.2); EOSINOPHIL # 0.3 TH/MM3 (0-0.4); EOSINOPHIL % 2.5 % (0.0-4.0); LYMPH % 26.1 % (9.0-44.0); LYMPHOCYTE # 3.1 TH/MM3 (1.0-4.8); MEAN CELL VOLUME 83.9 FL (80.0-100.0); MEAN CORPUSCULAR HEMOGLOBIN 28.1 PG (27.0-34.0); MEAN CORPUSCULAR HGB CONC 33.5 % (32.0-36.0); MONO % 6.2 % (0.0-8.0); NEUT % 64.2 % (16.0-70.0); PLATELET COUNT 265 TH/MM3 (150-450); RED BLOOD COUNT 4.89 MIL/MM3 (4.00-5.30); RED CELL DISTRIBUTION WIDTH 13.2 % (11.6-17.2); WHITE BLOOD COUNT 12.1 TH/MM3 (4.0-11.0)
[2017-03-03 04:39] LABS: HEMO FLAGS AUTO DIFF
[2017-03-03 04:45] LABS: ALT (GPT) 96 U/L (10-53)
[2017-03-03 04:47] LABS: ALKALINE PHOSPHATASE 78 U/L (45-117); TOTAL BILIRUBIN ADULT 0.5 MG/DL (0.2-1.0)
[2017-03-03 04:48] LABS: ANION GAP 11 MEQ/L (5-15); AST (GOT) 117 U/L (15-37); BICARBONATE 25.2 MEQ/L (21.0-32.0); BLOOD UREA NITROGEN 19 MG/DL (7-18); CHLORIDE 105 MEQ/L (98-107); GLOMERULAR FILTRATION RATE 56 ML/MIN (>89); POTASSIUM 4.8 MEQ/L (3.5-5.1); SODIUM (NA) 141 MEQ/L (136-145)
--- NOTE | 2017-03-03 04:51 | RADRPT ---
EXAM DATE/TIME: 03/03/2017 04:41 [facility] COMPARISON: CT ABDOMEN & PELVIS W/O CONTRAST, October 22, 2015, 22:11. INDICATIONS : Right flank pain with nausea and vomiting. ORAL CONTRAST: No oral contrast ingested. RADIATION DOSE: 16.48 CTDIvol (mGy) MEDICAL HISTORY : Hypertension. Diverticulitis. Renal calculi.Uterine cancer. Crohn's. diabetes. SURGICAL HISTORY : Hysterectomy. ENCOUNTER: Initial ACUITY: 1 day PAIN SCALE: 10/10 LOCATION: Right flank TECHNIQUE: Volumetric scanning of the abdomen and pelvis was performed. Using automated exposure control and ad justment of the mA and/or kV according to patient size, radiation dose was kept as low as reasonably achievable to obtain optimal diagnostic quality images. DICOM format image data is available electro nically for review and comparison. FINDINGS: LOWER LUNGS: The visualized lower lungs are clear. LIVER: Decreased attenuation without lesion. There is no dilation of the biliary tree. No calcified gallst ones. SPLEEN: Normal size without lesion. PANCREAS: Within normal limits. KIDNEYS: Normal in size and shape. There is no mass, stone, or hydronephrosis on the left. Mild hydronephrosi s and hydroureter on the right. ADRENAL GLANDS: Within normal limits. VASCULAR: There is no aortic aneurysm. BOWEL/MESENTERY: Extensive diverticulosis without diverticulitis. There is no free intraperitoneal air or fluid. ABDOMINAL WALL: Within normal limits. RETROPERITONEUM: There is no lymphadenopathy. BLADDER: No wall thickening or mass. 2 mm calculus in the posterior right urinary bladder. REPRODUCTIVE: Within normal limits. INGUINAL: There is no lymphadenopathy or hernia. MUSCULOSKELETAL: Within normal limits for patient age. CONCLUSION: 1. 2 mm calculus in the posterior right urinary bladder appears to have passed through the collecting system as there is mild right-sided hydroureter and hydronephrosis. 2. Diverticulosis. 3. Hepatic steatosis. Zia Garcia MD on March 03, 2017 at 4:47 Board Certified Radiologist. This report was verified electronically.
[2017-03-03] MEDS ORDERED: SODIUM CHLOR 0.9% 1000 ML INJ 1,000 ML IV ONE (05:00)
[2017-03-03] MEDS ORDERED: HYDROmorphone HCL PF 1 MG/ML VIAL IV PUSH ONE ×2 (05:00→06:45)
[2017-03-03 05:08] LABS: PLATELET ESTIMATE SMEAR NORMAL (NORMAL); PLATELET MORPHOLOGY NORMAL (NORMAL); SCAN/DIFF AUTO DIFF CONFIRMED
[2017-03-03 06:07] VITALS: RESP 16
[2017-03-03 06:24] LABS: BLOOD, URINE NEG (NEG); COMMENT (UR) CULT NOT INDICATED; CULTURE IF INDICATED CULT NOT INDICATED; GLUCOSE,URINE 300 mg/dL (NEG); KETONE, URINE TRACE mg/dL (NEG); MUCUS URINE FEW /lpf (OCC); NITRITE,URINE NEG (NEG); PH, URINE 5.5 (5.0-8.5); SQUAMOUS EPITHELIAL CELL URINE <1 /hpf (0-5); URINE COLOR LIGHT-YELLOW (YELLW/STRAW)
[2017-03-03] MEDS ORDERED: NORC5TAB PO (06:32)
[2017-03-03] MEDS ORDERED: IBUP400T20 PO (06:32)
== END 2017-03-03 07:02 | disposition home or self-care (01) ==
LOC: NEPC 03:37
DX: N13.2 Hydronephrosis with renal and ureteral calculous obstruction (principal)
CPT/HCPCS: 74176; 80053; 81001; 83605; 83690; 85025; 96361; 96374; 96375; 99285; J1170; J1885; J2270; J2405; J7030

== ENCOUNTER 2017-05-06 13:43 | Emergency (ER) | payer SELFPAY ==
[~2017-05-06] VITALS: Ht 160 cm; Wt 82.0 kg
[~2017-05-06 13:43] MED LIST changes: +IBUP400T20 PO; +NORC5TAB PO
[2017-05-06 13:44] VITALS: BP 136/72; PULSE 97; RESP 16; TEMP 98.4; O2SAT 100
[2017-05-06] MEDS ORDERED: SODIUM CHLORIDE 0.9% FLUSH 10 ML FLUSH IVF PRN (15:45)
[2017-05-06 15:47] VITALS: O2SAT 98
--- NOTE | 2017-05-06 15:49 | PD ---
HPI Chief Complaint: Chest Pain Time Seen by Provider: 15:33 Travel History International Travel<30 days: No Contact w/Intl Traveler<30days: No Traveled to known affect area: No History of Present Illness HPI Patient is a 52-year-old female presents emergency Department with chest pain the left side of her chest. No radiation. She's also had some mild shortness of breath. She states that she was here in February for similar symptoms was admitted overnight and was ultimately told it was gas and follow up with her primary care physician. At that time it was noted that she had a stress test was negative. Patient states that she thinks that something is wrong wants to be evaluated again. She denies any injury denies any nausea or vomiting denies any epigastric pain. PFSH Past Medical History Arthritis: Yes (spine) Heart Rhythm Problems: No Cancer: Yes (UTERINE CA, "VAGINAL CANCER" PER PT) Cardiac Catheterization: No Cardiovascular Problems: No High Cholesterol: Yes (PATIENT UNSURE) Congestive Heart Failure: No Diabetes: Yes Patient Takes Glucophage: Yes Diminished Hearing: No Diverticulitis: Yes Gastrointestinal Disorders: Yes (DIVERTICULITIS/CROHNS) GERD: Yes Headaches: Yes Hypertension: Yes Kidney Stones: Yes (2014) Immunizations Current: Yes Tetanus Vaccination: > 5 Years Influenza Vaccination: Yes ?: Not Menopausal: Yes : 2 Para: 2 Past Surgical History Abdominal Surgery: Yes (HYSTERECTOMY) Coronary Artery Bypass Graft: No Genitourinary Surgery: Yes (hysterectomy ) Hysterectomy: Yes Oral Surgery: Yes (TEETH EXTRACTIONS) Family History Family Myocardial Infarction: Yes (UNCLE) Social History Alcohol Use: No Tobacco Use: No Substance Use: No Allergies-Medications (Allergen,Severity, Reaction): Coded Allergies: ciprofloxacin (Unverified Allergy, Severe, Hives, 05/06/17) metronidazole (Unverified Allergy, Severe, HIVES/FACIAL SWELLING, 05/06/17) povidone-iodine (Unverified Allergy, Unknown, 05/06/17) Reported Meds & Prescriptions Reported Meds & Active Scripts Active Lisinopril 10 Mg Tab 10 Mg PO DAILY Metformin (Metformin HCl) 1,000 Mg Tab 1,000 Mg PO DAILY With a meal Review of Systems Except as stated in HPI: all other systems reviewed are Neg Physical Exam Narrative GENERAL: Well-developed well-nourished no obvious distress, overweight. SKIN: Focused skin assessment warm/dry. HEAD: Atraumatic. Normocephalic. EYES: Pupils equal and round. No scleral icterus. No injection or drainage. ENT: No nasal bleeding or discharge. Mucous membranes pink and moist. NECK: Trachea midline. No JVD. CARDIOVASCULAR: Regular rate and rhythm. No murmur appreciated. RESPIRATORY: No accessory muscle use. Clear to auscultation. Breath sounds equal bilaterally. GASTROINTESTINAL: Abdomen soft, non-tender, nondistended. Hepatic and splenic margins not palpable. MUSCULOSKELETAL: No obvious deformities. No clubbing. No cyanosis. No edema. NEUROLOGICAL: Awake and alert. No obvious cranial nerve deficits. Motor grossly within normal limits. Normal speech. PSYCHIATRIC: Appropriate mood and affect; insight and judgment normal. Data Data Last Documented VS Vital Signs Date Time Temp Pulse Resp B/P (MAP) Pulse Ox O2 Delivery O2 Flow Rate FiO2 05/06/17 17:36 05/06/17 17:19 63 16 97 Room Air 05/06/17 13:44 98.4 Orders Orders Electrocardiogram (05/06/17 13:50) Electrocardiogram (05/06/17 15:42) Ckmb (Isoenzyme) Profile (05/06/17 15:42) Complete Blood Count With Diff (05/06/17 15:42) Comprehensive Metabolic Panel (05/06/17 15:42) Magnesium (Mg) (05/06/17 15:42) Prothrombin Time / Inr (Pt) (05/06/17 15:42) Act Partial Throm Time (Ptt) (05/06/17 15:42) Troponin I (05/06/17 15:42) Chest, Single Ap (05/06/17 15:42) Ecg Monitoring (05/06/17 15:42) Iv Access Insert/Monitor (05/06/17 15:42) Oximetry (05/06/17 15:42) Oxygen Administration (05/06/17 15:42) Sodium Chloride 0.9% Flush (Ns Flush) (05/06/17 15:45) CKMB (05/06/17 15:45) CKMB% (05/06/17 15:45) D-Dimer (05/06/17 16:56) Labs Laboratory Tests Test 05/06/17 15:45 White Blood Count 9.6 TH/MM3 Red Blood Count 4.38 MIL/MM3 Hemoglobin 12.2 GM/DL Hematocrit 36.8 % Mean Corpuscular Volume 84.0 FL Mean Corpuscular Hemoglobin 27.7 PG Mean Corpuscular Hemoglobin Concent 33.0 % Red Cell Distribution Width 12.8 % Platelet Count 258 TH/MM3 Mean Platelet Volume 8.1 FL Neutrophils (%) (Auto) 62.8 % Lymphocytes (%) (Auto) 27.0 % Monocytes (%) (Auto) 5.1 % Eosinophils (%) (Auto) 2.7 % Basophils (%) (Auto) 2.4 % Neutrophils # (Auto) 6.0 TH/MM3 Lymphocytes # (Auto) 2.6 TH/MM3 Monocytes # (Auto) 0.5 TH/MM3 Eosinophils # (Auto) 0.3 TH/MM3 Basophils # (Auto) 0.2 TH/MM3 CBC Comment DIFF FINAL Differential Comment Prothrombin Time 13.5 SEC Prothromb Time International Ratio 1.2 RATIO Activated Partial Thromboplast Time 29.8 SEC D-Dimer Quantitative (PE/DVT) 0.30 MG/L FEU Blood Urea Nitrogen 14 MG/DL Creatinine 0.70 MG/DL Random Glucose 140 MG/DL Total Protein 7.8 GM/DL Albumin 3.5 GM/DL Calcium Level 8.8 MG/DL Magnesium Level 2.0 MG/DL Alkaline Phosphatase 65 U/L Aspartate Amino Transf (AST/SGOT) 85 U/L Alanine Aminotransferase (ALT/SGPT) 78 U/L Total Bilirubin 0.2 MG/DL Sodium Level 141 MEQ/L Potassium Level 3.9 MEQ/L Chloride Level 106 MEQ/L Carbon Dioxide Level 26.7 MEQ/L Anion Gap 8 MEQ/L Estimat Glomerular Filtration Rate 88 ML/MIN Total Creatine Kinase 115 U/L Creatine Kinase MB 1.1 NG/ML Troponin I LESS THAN 0.02 NG/ML MDM Medical Decision Making Medical Screen Exam Complete: Yes Emergency Medical Condition: Yes Differential Diagnosis Chest pain, ACS seems unlikely, CO, PE, GERD, pleurisy. Narrative Course Patient roomed emergency department, she appears well in no obvious distress. She is offered pain medicine declined. Troponin negative, EKG reassuring. Again I reviewed the results of her recent negative nuclear stress test. A d- dimer was obtained and is also negative. Chest x-ray negative. Discussed with the patient that she appears comfortable at this time I do not evidence to suggest that this is an acute life-threatening event. At this time she needs to follow up with her primary care physician. She states she has an appointment with the [facility] clinic in 10 days. She was encouraged to keep this appointment. I also discussed with her her elevations of transaminases. Albumin normal, bilirubin normal, coags normal. She states she hasn't had a drink in 4 years. Recommend that she continue follow-up with the [facility] and recommended that she have a hepatitis panel with them. At this point she is stable for discharge. Diagnosis Primary Impression: Chest pain Qualified Codes: R07.9 - Chest pain, unspecified Referrals: [facility] Disposition: DISCHARGE HOME Condition: Stable Blue Avila MD May 06, 2017 15:49
[2017-05-06 15:57] LABS: BASOPHIL # 0.2 TH/MM3 (0-0.2); BASOPHIL % 2.4 % (0.0-2.0); EOSINOPHIL # 0.3 TH/MM3 (0-0.4); EOSINOPHIL % 2.7 % (0.0-4.0); HEMATOCRIT 36.8 % (35.0-46.0); HEMO FLAGS DIFF FINAL; LYMPHOCYTE # 2.6 TH/MM3 (1.0-4.8); MEAN CORPUSCULAR HEMOGLOBIN 27.7 PG (27.0-34.0); MONO % 5.1 % (0.0-8.0); NEUT % 62.8 % (16.0-70.0); PLATELET COUNT 258 TH/MM3 (150-450); RED BLOOD COUNT 4.38 MIL/MM3 (4.00-5.30); RED CELL DISTRIBUTION WIDTH 12.8 % (11.6-17.2); WHITE BLOOD COUNT 9.6 TH/MM3 (4.0-11.0)
[2017-05-06 16:02] LABS: CHLORIDE 106 MEQ/L (98-107); POTASSIUM 3.9 MEQ/L (3.5-5.1); SODIUM (NA) 141 MEQ/L (136-145)
--- NOTE | 2017-05-06 16:05 | RADRPT ---
EXAM DATE/TIME: 05/06/2017 15:48 [facility] COMPARISON: CHEST SINGLE AP, February 12, 2017, 12:22. INDICATIONS : Chest pain. MEDICAL HISTORY : Hypertension. SURGICAL HISTORY : None. ENCOUNTER: Initial ACUITY: 1 day PAIN SCORE: 4/10 LOCATION: Left chest FINDINGS: A single view of the chest demonstrates the lungs to be symmetrically aerated without evidence of mas s, infiltrate or effusion. The cardiomediastinal contours are unremarkable. Osseous structures are intact. CONCLUSION: No acute disease. Edgar Sosa MD FACR on May 06, 2017 at 16:03 Board Certified Radiologist. This report was verified electronically.
[2017-05-06 16:06] LABS: ANION GAP 8 MEQ/L (5-15); BICARBONATE 26.7 MEQ/L (21.0-32.0)
[2017-05-06 16:07] LABS: BLOOD UREA NITROGEN 14 MG/DL (7-18)
[2017-05-06 16:10] LABS: ALT (GPT) 78 U/L (10-53); AST (GOT) 85 U/L (15-37); GLOMERULAR FILTRATION RATE 88 ML/MIN (>89)
[2017-05-06 16:11] LABS: TOTAL BILIRUBIN ADULT 0.2 MG/DL (0.2-1.0)
[2017-05-06 16:12] LABS: ALKALINE PHOSPHATASE 65 U/L (45-117); CREATINE KINASE 115 U/L (26-192)
[2017-05-06 16:25] LABS: CKMB 1.1 NG/ML (0.5-3.6)
[2017-05-06 16:32] LABS: APTT (PATIENT) 29.8 SEC (24.3-30.1); INTERNATIONAL NORMALIZED RATIO 1.2 RATIO; PROTHROMBIN TIME - PATIENT 13.5 SEC (9.8-11.6)
[2017-05-06 17:19] VITALS: BP 132/66; PULSE 63; RESP 16; O2SAT 97
--- NOTE | 2017-05-07 10:51 | EKG ---
Date Performed: 05/06/2017 Time Performed: 13:50:08 PTAGE: 52 years EKG: Sinus rhythm NONSPECIFIC T-WAVE ABNORMALITY BORDERLINE ECG PREVIOUS TRACING : 02/12/[address]-T wave changes are new since the prior tracing. DOCTOR: Tyree Moncada Interpretating Date/Time 05/07/2017 10:50:51
--- NOTE | 2017-05-07 10:53 | EKG ---
Date Performed: 05/06/2017 Time Performed: 15:55:52 PTAGE: 52 years EKG: Sinus rhythm NORMAL ECG WARNING: DATA QUALITY MAY AFFECT INTERPRETATION PREVIOUS TRACING : 05/06/2017 13.[address]-T wave changes have resolved from the prior tracing. DOCTOR: Tyree Moncada Interpretating Date/Time 05/07/2017 10:51:31
== END 2017-05-06 17:40 | disposition home or self-care (01) ==
LOC: PHED 13:43
DX: R07.9 Chest pain, unspecified (principal); R06.02 Shortness of breath; E11.9 Type 2 diabetes mellitus without complications; I10 Essential (primary) hypertension; Z79.84 Long term (current) use of oral hypoglycemic drugs; Z79.899 Other long term (current) drug therapy
CPT/HCPCS: 71010; 80053; 82550; 82552; 83735; 84484; 85025; 85379; 85610; 85730; 93005; 99285